=== PATIENT | female | born 1970 | race African-American/Black ===

== ENCOUNTER → 2016-06-13 | Outpatient (CLI) | payer OTHER ==
[~2016-06-13] MED LIST: ALPR1TAB2 PO; BISA10SU65 PR; CALC-112 PO; CHOL-29 PO; DIAZ5TAB PO; DIPH25CA61 PO; DOCU-30 PO; FERR325T20 PO; GABA400C PO; HYDR4TAB PO; HYDR4TAB16 PO; LANS30TA6 PO; METH500T97 PO; MORP15TA39 PO; POLY17PO5 PO; VENL37.57 PO; VITA1CAP5 PO
== END | disposition home or self-care (01) ==
LOC: RAD 10:51
PROVIDERS: ATTEND Neurological Surgery
DX: M43.17 Spondylolisthesis, lumbosacral region (principal); M53.86 Other specified dorsopathies, lumbar region; M25.78 Osteophyte, vertebrae; M49.86 Spondylopathy in diseases classified elsewhere, lumbar region
CPT/HCPCS: 72082

== ENCOUNTER 2018-06-05 11:13 | Inpatient (IN) | payer OTHER ==
[~2018-06-05] VITALS: Ht 193 cm; Wt 115.8 kg
[~2018-06-05 11:13] MED LIST changes: +DOCU-131 PO; -DOCU-30 PO; +FERR325T18 PO; -FERR325T20 PO; -HYDR4TAB16 PO; +HYDR4TAB48 PO; +MORP-52 PO; -MORP15TA39 PO
[2018-06-05] MEDS ORDERED: DIAZEPAM 5 MG TABLET PO ONE (11:30)
[2018-06-05] MEDS ORDERED: KETOROLAC 30 MG/1 ML IM ONE (11:30)
[2018-06-05] MEDS ORDERED: OXYcodone/APAP 5/325MG TABLET PO ONE (11:30)
[2018-06-05] MEDS ORDERED: OXYcodone/APAP 5/325MG TABLET ONE (11:39)
[2018-06-05] MEDS ORDERED: KETOROLAC 30 MG/1 ML ONE (11:39)
[2018-06-05] MEDS ORDERED: DIAZEPAM 5 MG TABLET ONE (11:40)
--- NOTE | 2018-06-05 12:16 | NUR ---
PT REPORTS THAT HER PAIN IS UNCHANGED AFTER MEDICATION
[2018-06-05] MEDS ORDERED: HYDROmorphone 1 MG/ML, 1ML VIAL ONE (12:25)
[2018-06-05] MEDS ORDERED: HYDROmorphone 1 MG/ML, 1ML INJ IM ONE (12:30)
--- NOTE | 2018-06-05 12:45 | NUR ---
PT NOW REPORTING ABD PAIN/ NAUSEA, PA NOTIFIED, SEE MAR FOR INTERVIENTION
[2018-06-05] MEDS ORDERED: ONDANSETRON ODT 8 MG ONE (12:49)
[2018-06-05] MEDS ORDERED: ONDANSETRON ODT 8 MG PO ONE (13:00)
--- NOTE | 2018-06-05 14:06 | NUR ---
PREVIOUS NOTE CHARTED UNDER WRONG PT
--- NOTE | 2018-06-05 14:06 | NUR ---
Patient/Caregiver given discharge instructions and they have confirmed that they understand the instructions. Patient ambulatory with steady gait.
[2018-06-05] MEDS ORDERED: GABAPENTIN 300 MG CAPSULE PO ONE (14:30)
[2018-06-05] MEDS ORDERED: LIDODERM 5% PATCH TD ONE ×2 (14:30→15:00)
--- NOTE | 2018-06-05 14:54 | NUR ---
PT IN CT AT THIS TIME
[2018-06-05] MEDS ORDERED: GABAPENTIN 300 MG CAPSULE ONE (15:00)
[2018-06-05] MEDS ORDERED: ENOXAPARIN 40 MG/0.4 ML SQ SCH (18:00)
[2018-06-05] MEDS ORDERED: OXYcodone/APAP 5/325MG TABLET PO PRN (18:00)
[2018-06-05] MEDS: NICOTINE 14MG/24 HR PATCH.TD24 TD SCH (18:40)
[2018-06-05] MEDS: DULOXETINE 20 MG CAPSULE.DR PO SCH (18:40)
[2018-06-05 19:15] VITALS: BP 118/78
[2018-06-05] MEDS: ONDANSETRON ODT 4 MG PO PRN (20:34)
[2018-06-05] MEDS: PROMETHAZINE 25 MG/ML, 1ML IM PRN (23:54)
[2018-06-06 01:05] VITALS: BP 147/91
[2018-06-06 05:52] LABS: MEAN CORPUSCULAR HEMOGLOBIN 28.5 pg (27.0-34.8); MEAN CORPUSCULAR HGB CONC 32.7 g/dL (32.4-35.8); MEAN CORPUSCULAR VOLUME 87.3 fL (80-100); MEAN PLATELET VOLUME 8.5 fL (7.4-10.4); PLATELET COUNT 175 x10^3/uL (130-400); RED BLOOD COUNT 3.95 x10^6/uL (3.82-5.3); RED CELL DISTRIBUTION WIDTH 15.8 % (9.6-15.2)
[2018-06-06 06:01] LABS: ALANINE AMINOTRANSFERASE 335 U/L (12-78); ALBUMIN 3.4 g/dL (3.4-5.0); ANION GAP 5 mmol/L (5-15); CALCIUM 8.5 mg/dL (8.5-10.1); CHLORIDE 110 mmol/L (98-107)
[2018-06-06 06:12] LABS: ALKALINE PHOSPHATASE 213 U/L (45-117); BILIRUBIN,TOTAL 0.7 mg/dL (0.2-1.0); CREATININE 0.63 mg/dL (0.55-1.02); TOTAL PROTEIN 6.6 g/dL (6.4-8.2)
[2018-06-06 06:51] LABS: MD YES
[2018-06-06 06:52] LABS: <PLATELET ESTIMATE> ADEQUATE; <PLT MORPHOLOGY> NORMAL PLT MORPH; LYMPHS% (MANUAL) 48 % (22-44); MONOS#(MANUAL) 0.16 x10^3/uL (0.3-2.7); MONOS% (MANUAL) 6 % (2-9); SEG#(MANUAL) 1.24 x10^3/uL (1.8-6.8); SEGS% (MANUAL) 46 % (42-75)
[2018-06-06 06:57] LABS: ANISOCYTOSIS 1+
[2018-06-06 08:00] VITALS: BP 132/81
[2018-06-06] MEDS: PROMETHAZINE 25 MG/ML, 1ML IM PRN (08:19)
[2018-06-06] MEDS: HYDROmorphone 2 MG/ML, 1ML IV PRN ×5 (08:19→22:46)
[2018-06-06] MEDS: DULOXETINE 20 MG CAPSULE.DR PO SCH (08:54)
[2018-06-06] MEDS: NICOTINE 14MG/24 HR PATCH.TD24 TD SCH (10:38)
[2018-06-06 13:35] VITALS: BP 146/84
[2018-06-06] MEDS: ONDANSETRON ODT 4 MG PO PRN ×2 (13:42→20:40)
[2018-06-06] MEDS: FERROUS SULFATE 325 MG TABLET PO SCH (18:07)
[2018-06-06 20:00] VITALS: BP 113/73
[2018-06-07 00:01] VITALS: BP 112/71
[2018-06-07] MEDS: HYDROmorphone 2 MG/ML, 1ML IV PRN ×6 (02:39→23:42)
[2018-06-07] MEDS: ONDANSETRON ODT 4 MG PO PRN ×2 (04:30→20:40)
[2018-06-07] MEDS: PANTOPRAZOLE 20MG TABLET PO SCH (06:26)
[2018-06-07] MEDS: FERROUS SULFATE 325 MG TABLET PO SCH ×2 (08:01→16:48)
[2018-06-07] MEDS: DULOXETINE 20 MG CAPSULE.DR PO SCH (08:01)
[2018-06-07 08:06] LABS: MEAN CORPUSCULAR HEMOGLOBIN 27.8 pg (27.0-34.8); MEAN CORPUSCULAR HGB CONC 31.7 g/dL (32.4-35.8); MEAN CORPUSCULAR VOLUME 87.8 fL (80-100); MEAN PLATELET VOLUME 8.2 fL (7.4-10.4); PLATELET COUNT 206 x10^3/uL (130-400); RED BLOOD COUNT 4.26 x10^6/uL (3.82-5.3); RED CELL DISTRIBUTION WIDTH 15.3 % (9.6-15.2)
[2018-06-07 08:32] LABS: BASOPHILS # (AUTO) 0.02 x10^3/uL (0-0.1); BASOPHILS % (AUTO) 0 % (0-1); EOSINOPHILS % (AUTO) 2 % (1-7); LYMPHOCYTES # (AUTO) 2.35 x10^3/uL (1-3.4); LYMPHOCYTES % (AUTO) 53 % (22-44); MD SCAN; MONOCYTES # (AUTO) 0.25 x10^3/uL (0.2-0.8); MONOCYTES % (AUTO) 6 % (2-9); NEUTROPHILS # (AUTO) 1.72 x10^3/uL (1.8-6.8); NEUTROPHILS % (AUTO) 39 % (42-75)
[2018-06-07 08:40] VITALS: BP 126/77
[2018-06-07] MEDS ORDERED: PROPOFOL 10 MG/ML, 20ML ONE (09:58)
[2018-06-07] MEDS ORDERED: ONDANSETRON ODT 8 MG PO PRN (11:30)
[2018-06-07] MEDS ORDERED: LABETALOL 5 MG/ML SYRINGE IV PRN (11:30)
[2018-06-07] MEDS ORDERED: MEPERIDINE/PF 25MG/0.5ML IVPush PRN (11:30)
[2018-06-07] MEDS ORDERED: ACETAMINOPHEN 325 MG TABLET PO PRN (11:30)
[2018-06-07] MEDS ORDERED: PROMETHAZINE 12.5 MG SUPP PR PRN (11:30)
[2018-06-07] MEDS ORDERED: PROMETHAZINE 25 MG/ML, 1ML IV PRN (11:30)
[2018-06-07] MEDS ORDERED: hydrALAzine 20 MG/ML, 1ML IV PRN (11:30)
[2018-06-07] MEDS ORDERED: ALBUTEROL SULFATE 2.5 MG/3 ML NPPB PRN (11:30)
[2018-06-07] MEDS ORDERED: MIDAZOLAM 1 MG/ML, 2ML IV PRN (11:30)
[2018-06-07] MEDS ORDERED: OXYcodone 5 MG/5 ML ORAL.SOL UDC PO PRN (11:30)
[2018-06-07] MEDS ORDERED: DIAZEPAM 5 MG/ML, 2ML IVPush PRN (11:30)
[2018-06-07] MEDS ORDERED: HALOPERIDOL 5 MG/ML IV PRN (11:30)
[2018-06-07] MEDS ORDERED: ONDANSETRON 2MG/ML, 2ML IV PRN (11:30)
[2018-06-07] MEDS ORDERED: EPHEDRINE 50 MG/ML, 1ML IVPush PRN (11:30)
[2018-06-07] MEDS ORDERED: MORPHINE SULFATE 4 MG/ML, 1ML IVPush PRN (11:30)
[2018-06-07] MEDS ORDERED: HYDROmorphone 2 MG/ML, 1ML ONE (11:39)
[2018-06-07] MEDS: HYDROmorphone 2 MG/ML, 1ML IVPush PRN ×2 (11:42→11:47)
[2018-06-07] MEDS ORDERED: HALOPERIDOL 5 MG/ML ONE (11:45)
[2018-06-07 12:25] VITALS: BP 99/62
[2018-06-07] MEDS: NICOTINE 14MG/24 HR PATCH.TD24 TD SCH (13:59)
[2018-06-07 19:25] VITALS: BP 131/80
[2018-06-08 01:43] VITALS: BP 108/68
[2018-06-08] MEDS: HYDROmorphone 2 MG/ML, 1ML IV PRN ×3 (03:38→12:08)
[2018-06-08] MEDS: PANTOPRAZOLE 20MG TABLET PO SCH (05:50)
[2018-06-08] MEDS: FERROUS SULFATE 325 MG TABLET PO SCH ×2 (07:25→16:56)
[2018-06-08] MEDS: DULOXETINE 20 MG CAPSULE.DR PO SCH (07:25)
[2018-06-08 08:16] VITALS: BP 130/81
[2018-06-08 08:56] LABS: ALANINE AMINOTRANSFERASE 139 U/L (12-78); ALBUMIN 3.6 g/dL (3.4-5.0); ANION GAP 6 mmol/L (5-15); CALCIUM 8.6 mg/dL (8.5-10.1); CHLORIDE 105 mmol/L (98-107); CREATININE 0.68 mg/dL (0.55-1.02)
[2018-06-08 08:58] LABS: ALKALINE PHOSPHATASE 176 U/L (45-117); BILIRUBIN,TOTAL 0.5 mg/dL (0.2-1.0); TOTAL PROTEIN 6.8 g/dL (6.4-8.2)
[2018-06-08] MEDS: NICOTINE 14MG/24 HR PATCH.TD24 TD SCH (10:28)
[2018-06-08 12:59] VITALS: BP 115/80
[2018-06-08] MEDS ORDERED: BISACODYL 10 MG SUPP PR PRN (13:00)
[2018-06-08] MEDS: SENNOSIDES 8.6 MG TABLET PO SCH (16:56)
[2018-06-08 19:53] VITALS: BP 107/71
[2018-06-09 01:35] VITALS: BP 110/83
[2018-06-09] MEDS: PANTOPRAZOLE 20MG TABLET PO SCH (05:08)
[2018-06-09 08:02] LABS: ALANINE AMINOTRANSFERASE 103 U/L (12-78); ALBUMIN 3.5 g/dL (3.4-5.0); ANION GAP 6 mmol/L (5-15); CALCIUM 8.7 mg/dL (8.5-10.1); CHLORIDE 106 mmol/L (98-107); CREATININE 0.66 mg/dL (0.55-1.02)
[2018-06-09 08:05] LABS: ALKALINE PHOSPHATASE 165 U/L (45-117); BILIRUBIN,TOTAL 0.5 mg/dL (0.2-1.0); TOTAL PROTEIN 6.7 g/dL (6.4-8.2)
[2018-06-09 08:25] VITALS: BP 141/98
[2018-06-09] MEDS: SENNOSIDES 8.6 MG TABLET PO SCH (08:25)
[2018-06-09] MEDS: FERROUS SULFATE 325 MG TABLET PO SCH (08:25)
[2018-06-09] MEDS: DULOXETINE 20 MG CAPSULE.DR PO SCH (08:25)
[2018-06-09] MEDS: ONDANSETRON ODT 4 MG PO PRN (08:32)
[2018-06-09 14:45] VITALS: BP 144/89
[2018-06-09] MEDS ORDERED: BISA10SU54 PR (14:59)
[2018-06-09] MEDS ORDERED: SENN-99 PO (14:59)
[2018-06-09] MEDS ORDERED: PANT20TA3 PO (14:59)
[2018-06-09] MEDS ORDERED: NICO-486 TD (14:59)
[2018-06-09] MEDS ORDERED: FERR325T18 PO (14:59)
== END 2018-06-09 15:30 | disposition left against medical advice (07) | DRG 551 ==
LOC: ED 11:57 → EDIP 16:31 → 3NE 16:49
PROVIDERS: ADMIT Hospitalist; ATTEND Hospitalist
DX: M54.5 Low back pain (principal); K83.1 Obstruction of bile duct; M54.10 Radiculopathy, site unspecified; D50.9 Iron deficiency anemia, unspecified; E66.9 Obesity, unspecified; Z68.31 Body mass index [BMI] 31.0-31.9, adult; M19.90 Unspecified osteoarthritis, unspecified site; E89.0 Postprocedural hypothyroidism; F17.210 Nicotine dependence, cigarettes, uncomplicated; G89.29 Other chronic pain; K59.03 Drug induced constipation; Z53.21 Procedure and treatment not carried out due to patient leaving prior to being seen by health care provider; Z96.643 Presence of artificial hip joint, bilateral; K21.9 Gastro-esophageal reflux disease without esophagitis; T40.605A Adverse effect of unspecified narcotics, initial encounter; Z79.1 Long term (current) use of non-steroidal anti-inflammatories (NSAID); Z79.899 Other long term (current) drug therapy; Z83.3 Family history of diabetes mellitus; Z85.819 Personal history of malignant neoplasm of unspecified site of lip, oral cavity, and pharynx; Z87.11 Personal history of peptic ulcer disease; Z90.710 Acquired absence of both cervix and uterus; Z98.84 Bariatric surgery status; Z88.8 Allergy status to other drugs, medicaments and biological substances; Y92.89 Other specified places as the place of occurrence of the external cause; Z90.89 Acquired absence of other organs; Z90.49 Acquired absence of other specified parts of digestive tract
CPT/HCPCS: 36415; 72114; 72131; 72148; 74181; 76705; 80053; 80074; 82728; 83540; 83550; 84443; 85025; 86704; 86706; 86708; 86803; 87340; 93005; 96372; 99285; G0378; J1170; J1885; J2550; J2704; Q0162; J1630

== ENCOUNTER → 2020-06-25 | Outpatient (CLI) | payer OTHER ==
[~2020-06-25] MED LIST changes: +BISA10SU54 PR; +GABA300C PO; +METH-640 PO; +NICO-486 TD; +OMEP20TA62 PO; +PANT20TA4 PO; +RIVA10TA2 PO; +SENN-99 PO
[2020-06-25 09:48] LABS: INTERNATIONAL NORMALIZED RATIO 1.1 (0.93-1.1); PROTHROMBIN TIME 11.7 Seconds (9.6-11.5)
[2020-06-25 09:53] LABS: MICROSCOPIC NOT IND
[2020-06-25 09:54] LABS: ALANINE AMINOTRANSFERASE 20 U/L (12-78); ALBUMIN 4.5 g/dL (3.4-5.0); ANION GAP 4 mmol/L (5-15); CALCIUM 8.9 mg/dL (8.5-10.1); CHLORIDE 108 mmol/L (98-107)
[2020-06-25 09:57] LABS: ALKALINE PHOSPHATASE 109 U/L (45-117); BILIRUBIN,TOTAL 0.6 mg/dL (0.2-1.0); CREATININE 0.74 mg/dL (0.55-1.02); TOTAL PROTEIN 8.4 g/dL (6.4-8.2)
[2020-06-25 10:10] LABS: BASOPHILS % (AUTO) 1 % (0-1); EOSINOPHILS % (AUTO) 1 % (1-7); LYMPHOCYTES % (AUTO) 39 % (22-44); MEAN CORPUSCULAR HEMOGLOBIN 25.5 pg (27.0-34.8); MEAN CORPUSCULAR HGB CONC 31.1 g/dL (32.4-35.8); MEAN PLATELET VOLUME 8.6 fL (7.4-10.4); MONOCYTES % (AUTO) 5 % (2-9); NEUTROPHILS % (AUTO) 54 % (42-75); PLATELET COUNT 210 x10^3/uL (130-400); RED CELL DISTRIBUTION WIDTH 17.9 % (9.6-15.2)
[2020-06-25 10:13] LABS: MD NO
== END | disposition home or self-care (01) ==
LOC: STAR 08:04
PROVIDERS: ATTEND Neurological Surgery
DX: Z01.812 Encounter for preprocedural laboratory examination (principal); Z20.822 Contact with and (suspected) exposure to COVID-19; Z01.810 Encounter for preprocedural cardiovascular examination; Z01.811 Encounter for preprocedural respiratory examination; R79.1 Abnormal coagulation profile; M47.892 Other spondylosis, cervical region; M54.12 Radiculopathy, cervical region; R94.31 Abnormal electrocardiogram [ECG] [EKG]; R82.90 Unspecified abnormal findings in urine; J43.9 Emphysema, unspecified; M50.322 Other cervical disc degeneration at C5-C6 level; Z95.0 Presence of cardiac pacemaker
CPT/HCPCS: 36415; 71046; 72050; 80053; 81003; 85025; 85610; 85730; 93005; U0003

== ENCOUNTER 2020-06-29 05:36 | Inpatient (IN) | payer OTHER ==
[~2020-06-29] VITALS: Ht 193 cm; Wt 94.0 kg
[2020-06-29] MEDS ORDERED: BUPIVACAINE/PF 0.5% ONE (06:14)
[2020-06-29] MEDS ORDERED: BACITRACIN 50,000 UNIT ONE (06:14)
[2020-06-29] MEDS ORDERED: EPINEPHRINE 1 MG/ML, 1ML ONE (06:14)
[2020-06-29] MEDS ORDERED: LACTATED RINGERS 1,000 ML IV SCH (06:30)
[2020-06-29] MEDS ORDERED: CHLORHEXIDINE 15 ML UDC PO ONE (06:30)
[2020-06-29 06:36] VITALS: BP 141/95
[2020-06-29] MEDS ORDERED: MIDAZOLAM 1 MG/ML, 2ML ONE (06:38)
[2020-06-29] MEDS ORDERED: FENTANYL PF 100 MCG/2ML ONE ×3 (06:38→09:22)
[2020-06-29] MEDS ORDERED: ACETAMINOPHEN 500 MG TABLET ONE (06:48)
[2020-06-29] MEDS ORDERED: CEFAZOLIN 1,000 MG ONE (06:52)
[2020-06-29] MEDS ORDERED: GLYCOPYRROLATE 0.2MG/1ML, 5ML ONE (06:52)
[2020-06-29] MEDS ORDERED: DEXAMETHASONE 4 MG/ML, 1ML ONE (06:52)
[2020-06-29] MEDS ORDERED: NEOSTIGMINE 1 MG/ML, 10ML ONE (06:52)
[2020-06-29] MEDS ORDERED: ONDANSETRON 2MG/ML, 2ML ONE (06:52)
[2020-06-29] MEDS ORDERED: ROCURONIUM 10MG/ML,5ML ONE (06:52)
[2020-06-29] MEDS ORDERED: SUCCINYLCHOLINE 20 MG/ML, 10ML ONE (06:52)
[2020-06-29] MEDS ORDERED: PROPOFOL 10 MG/ML, 20ML ONE (06:52)
[2020-06-29] MEDS ORDERED: PROPOFOL 50 ML ONE ×2 (06:53→07:50)
[2020-06-29] MEDS ORDERED: ACETAMINOPHEN 500 MG TABLET PO ONE (07:00)
[2020-06-29] MEDS ORDERED: OXYcodone 5 MG/5 ML ORAL.SOL UDC ONE (09:22)
[2020-06-29] MEDS: FENTANYL PF 100 MCG/2ML IV PRN ×3 (09:26→09:40)
[2020-06-29] MEDS ORDERED: SENNA/DOCUSATE TABLET PO PRN (09:30)
[2020-06-29] MEDS ORDERED: PHARMACY MAY ADJ FOR RENAL FX MC PRN (09:30)
[2020-06-29] MEDS ORDERED: DIPHENHYDRAMINE 50 MG CAPSULE PO PRN (09:30)
[2020-06-29] MEDS ORDERED: HYDROcodone/APAP 7.5-325MG/15ML UDC PO PRN (09:30)
[2020-06-29] MEDS ORDERED: HYDROcodone/APAP 5/325 TABLET PO PRN (09:30)
[2020-06-29] MEDS ORDERED: ONDANSETRON 2MG/ML, 2ML IVPush PRN (09:30)
[2020-06-29] MEDS ORDERED: MEPERIDINE/PF 25MG/0.5ML IVPush PRN (09:30)
[2020-06-29] MEDS ORDERED: MORPHINE SULFATE 4 MG/ML, 1ML IVPush PRN (09:30)
[2020-06-29] MEDS ORDERED: HYDROmorphone 1 MG/ML, 1ML INJ IVPush PRN (09:30)
[2020-06-29] MEDS ORDERED: DIPHENHYDRAMINE 50 MG/ML, 1ML IM PRN (09:30)
[2020-06-29] MEDS ORDERED: HYDROcodone/APAP 10/325 MG TABLET PO PRN (09:30)
[2020-06-29] MEDS ORDERED: OXYcodone 5 MG/5 ML ORAL.SOL UDC PO PRN (09:30)
[2020-06-29] MEDS ORDERED: MAGNESIUM HYDROXIDE 8%, 30ML UDC PO PRN (09:30)
[2020-06-29] MEDS ORDERED: HYDROmorphone 1 MG/ML, 1ML INJ ONE (09:47)
[2020-06-29] MEDS ORDERED: METHOCARBAMOL 1,000 MG in DEXTROSE 5% 100 ML IV ONE (10:00)
[2020-06-29] MEDS: ONDANSETRON 2MG/ML, 2ML IVPush PRN ×2 (11:02→19:47)
[2020-06-29] MEDS ORDERED: DEXAMETHASONE 4 MG/ML, 1ML IVPush ONE (11:30)
[2020-06-29] MEDS ORDERED: KETOROLAC 30 MG/1 ML IVPush ONE (11:30)
[2020-06-29] MEDS: NS + 20MEQ KCL 1,000 ML IV SCH (11:54)
[2020-06-29 13:46] VITALS: BP 139/99
[2020-06-29] MEDS: GABAPENTIN 300 MG CAPSULE PO SCH ×2 (14:34→21:05)
[2020-06-29] MEDS: OXYcodone/APAP 5/325MG TABLET PO PRN ×2 (14:34→14:38)
[2020-06-29] MEDS: CEFAZOLIN PMX 1GM/50ML 50 ML IVPB SCH ×2 (14:36→23:31)
[2020-06-29] MEDS: HYDROmorphone 2MG TABLET PO PRN ×2 (16:08→21:05)
[2020-06-29] MEDS: METHOCARBAMOL 750 MG TABLET PO PRN (16:16)
[2020-06-29] MEDS: DEXAMETHASONE 4 MG/ML, 1ML IVPush SCH ×2 (18:00→23:30)
[2020-06-29 18:43] VITALS: BP 128/89
[2020-06-29] MEDS: HYDROmorphone 1 MG/ML, 1ML INJ IV PRN ×2 (19:47→22:54)
[2020-06-29] MEDS: SODIUM CHLORIDE FLUSH 10ML SYR IVF SCH (21:05)
[2020-06-30 00:18] VITALS: BP 127/81
[2020-06-30] MEDS: NS + 20MEQ KCL 1,000 ML IV SCH (00:34)
[2020-06-30] MEDS: HYDROmorphone 2MG TABLET PO PRN ×3 (02:13→14:28)
[2020-06-30 04:00] VITALS: BP 133/87
[2020-06-30] MEDS: HYDROmorphone 1 MG/ML, 1ML INJ IV PRN ×2 (04:06→10:09)
[2020-06-30] MEDS ORDERED: OMEPRAZOLE 20 MG CAPSULE.DR PO SCH (06:00)
[2020-06-30] MEDS: DEXAMETHASONE 4 MG/ML, 1ML IVPush SCH (06:28)
[2020-06-30 08:00] VITALS: BP 123/78
[2020-06-30] MEDS: GABAPENTIN 300 MG CAPSULE PO SCH (08:12)
[2020-06-30] MEDS: METHOCARBAMOL 750 MG TABLET PO PRN (08:12)
[2020-06-30] MEDS: SODIUM CHLORIDE FLUSH 10ML SYR IVF SCH (08:12)
[2020-06-30] MEDS ORDERED: METH4TAB2 PO (11:59)
[2020-06-30] MEDS ORDERED: SULF1TAB23 PO (11:59)
[2020-06-30] MEDS ORDERED: CYCL10TA2 PO (11:59)
[2020-06-30] MEDS ORDERED: HYDR2TAB40 PO (11:59)
== END 2020-06-30 14:41 | disposition home or self-care (01) | DRG 473 ==
LOC: ORIP 05:36 → 4NE 10:24
PROVIDERS: ADMIT Neurological Surgery; ATTEND Neurological Surgery
PROC: 0RG20A0 Fusion of 2 or more Cervical Vertebral Joints with Interbody Fusion Device, Anterior Approach, Anterior Column, Open Approach (ICD-10-PCS; 2020-06-29)
PROC: 01N10ZZ Release Cervical Nerve, Open Approach (ICD-10-PCS; 2020-06-29)
PROC: 00NW0ZZ Release Cervical Spinal Cord, Open Approach (ICD-10-PCS; 2020-06-29)
PROC: 4A11X4G Monitoring of Peripheral Nervous Electrical Activity, Intraoperative, External Approach (ICD-10-PCS; 2020-06-29)
PROC: 0RB30ZZ Excision of Cervical Vertebral Disc, Open Approach (ICD-10-PCS; principal; 2020-06-29 07:00)
DX: M48.02 Spinal stenosis, cervical region (principal); M47.892 Other spondylosis, cervical region; M50.122 Cervical disc disorder at C5-C6 level with radiculopathy; Z88.8 Allergy status to other drugs, medicaments and biological substances
CPT/HCPCS: 36415; 72040; S0020; 86850; 86900; 95938; 95941; C1713; G0378; J0171; J0690; J1100; J1170; J1885; J2250; J2405; J2704; J2710; J3010; J3480; C1762; C1889; J0330; J2270; J2800; J7120